=== PATIENT | female | born 1950 | race Caucasian/White ===

== ENCOUNTER 2025-02-11 06:02 | Day surgery (SDC) | payer MEDICARE, SELFPAY ==
[2025-02-11] VITALS (19 sets, daily range): BP systolic 88–154; BP diastolic 58–94; PULSE 61–86; RESP 14–29; TEMP 36.1–37.2; O2SAT 93–99; BMI 24.9
[2025-02-11] MEDS: LACTATED RINGERS 1000 ML 1,000 ML 100 ML IV ×3 (06:40→11:15)
[2025-02-11] MEDS: SODIUM CHLORIDE 0.9 % (FLUSH) 10 ML SYRINGE IVF (06:45)
[2025-02-11] MEDS: ACETAMINOPHEN 500 MG TABLET 1000 MG PO (06:56)
[2025-02-11] MEDS: OXYCODONE (CR) 10 MG TAB.ER.12H PO (06:56)
--- NOTE | 2025-02-11 07:10 | SUR.PREOP ---
TIME?OUT:?0710 PT/RN/MDA?VERIFICATION?OF?SURGICAL?SITE,?PROCEDURE,?AND?CONSENT OBTAINED?PRIOR?TO?INVASIVE?PROCEDURE.
[2025-02-11] MEDS: MIDAZOLAM HCL 1 MG/ML inj IVP (07:11)
--- NOTE | 2025-02-11 07:23 | W.PM.H&PU ---
History & Physical Update History & Physical Update H&P Reviewed and patient assessed: No changes noted
--- NOTE | 2025-02-11 07:51 | CRLHL7_ITS ---
For Patients: As a result of the Cures Act, medical imaging exams and procedure reports are released immediately into your electronic medical record. You may view this report before your referring provider. If you have questions, please contact your health care provider. Indication: Hip replacement surgery Technique: AP hip fluoroscopic image. Fluoroscopy time 43.5 seconds. Findings/Impression: Hardware from a right total hip arthroplasty is in satisfactory position. Dictated by Ayan Michael MD @ 02/11/2025 9:56:46 AM (Electronically Signed)
[2025-02-11] MEDS: TRANEXAMIC ACID 100 MG/ML INJ 1000 MG IV (07:59)
--- NOTE | 2025-02-11 09:03 | PM.ORPRC ---
Procedure Note Date of procedure: 02/11/25 Procedure: PREOPERATIVE DIAGNOSIS: 1. Right hip osteoarthritis, severe, primary POSTOPERATIVE DIAGNOSIS: 1. Right hip osteoarthritis, severe, primary PROCEDURE: 1. Right total hip arthroplasty-anterior approach 2. Intraoperative fluoroscopy interpreted by Murtaza Dejesus M.D. for intraoperative evaluation of arthroplasty implant component positioning and leg length/offset evaluation. Fluoroscopy time was 43.5 seconds. SURGEON: Murtaza Dejesus MD. CIVIL LAWYER: Lam Portillo PA-C; ARNOLDO Lui - Of note, a skilled recovery assistant was critical for this case to aid in patient positioning, tissue retraction, limb manipulation/positioning, and closure. ANESTHESIA: Spinal anesthetic EBL: 300 ml IMPLANTS: DePuy J&J uncemented total hip Kimball cup size 52, hole eliminator, +0 neutral liner Actis stem, high offset, size 8 +8.5 mm ceramic 36 mm head COMPLICATIONS: None evident INDICATIONS: The patient is a pleasant 74-year-old female who has experienced severe right hip pain and difficulty bearing weight. Workup included x-rays which revealed severe osteoarthrosis in the hip. Given the deformity, the dysfunction, and the pain, as well as the failure of nonoperative management, recommendation was made for surgery. FINDINGS: Full-thickness chondral loss diffusely throughout the femoral head and acetabulum. Large osteophytes on the femoral head/neck junction and perimeter of the acetabulum. Large effusion upon entering the joint. In general, the soft tissues were very loose/lax. DESCRIPTION OF PROCEDURE: Following a thorough discussion of risks, benefits, and alternatives consent was obtained and the right hip was marked. The patient was brought to the operating room and placed supine on the operating table. Induction of anesthesia was undertaken. 1 g IV Ancef and 1 g tranexamic acid was administered within 1 hr of incision preoperatively. Proper time-out was performed identifying proper patient, site, procedure. The operative extremity was prepped and draped in the appropriate sterile fashion using ChloraPrep after the patient was positioned on the [place] table with head in neutral alignment and all bony prominences well padded. C-arm fluoroscopic imaging was utilized to confirm proper pelvis rotation and position, and to get true AP films of both the contralateral left, and the affected right hip. This is for comparison. A longitudinal incision was made starting approximately 1 cm distal to the ASIS, and 2-3 cm lateral. The incision was extended distally aiming toward the fibular head. Sharp incision through skin and bovie cautery through the subcutaneous tissue allowed identification of the TFL fascia. This was sharply divided, and the fascia bluntly released from the muscle fibers as we dissected medial. Upon coming to the medial border, we were able to retract the TFL laterally, and penetrated the deeper fascia and identify the crossing circumflex vessels. These were ligated/cauterized. The rectus was elevated from the capsule, and retractors placed laterally and medially along the femoral neck to help with visualization of the capsule. We then performed an inverted T capsulotomy. The capsule was tagged for later repair. Retractors were placed inside the capsule. The femoral neck was visualized after releasing medially down to the lesser trochanter, along the saddle laterally, and up onto the acetabulum. The femoral neck cut was made in line with our preoperative templating. The head was removed in a single piece, and sized. We turned our attention to acetabular preparation. Initially, the labrum was resected from around the perimeter, the pulvinar was excised, allowing us to visualize the false wall. We started the reaming with a 43 mm reamer. This was medialized down to the true wall. We then enlarged our reamers sequentially up to one size less than the selected cup size. We trialed at the same size and found it to have an excellent fit. The selected cup was then opened, inserted, and impacted in line with the goal of 40? of abduction, and 20-25? of anteversion. This was confirmed on C-arm fluoroscopic imaging to be in the appropriate/goal position. Once the cup was placed we placed a hole eliminator and a liner consistent with preop planning. Attention was turned to the femoral preparation. The limb was extended, externally rotated, and adducted. The posteromedial capsule was released, as retractors were placed allowing excellent access to the proximal femur. Initially a dye box operator was followed by canal finder followed by various broaches. We broached sequentially up to the size noted above, found it to have excellent rotational control, and trialing various heads and necks, revealed that appropriate neck offset, and the above noted head size provided the greatest stability, and anabaptist of length, and offset. C-arm fluoroscopic imaging confirmed position of the stem, as well as leg lengths, which were compared with the pre procedure all fluoroscopic images. Trial implants were removed, the real femoral stem inserted, as was the appropriate head. After reducing, the leg was placed through range of motion and stability was confirmed anterior, posterior, and lateral. A 3 min Betadine soak was then performed, and thorough irrigation with normal saline followed. Closure of the capsule was performed with #1 PDS. Bleeding was confirmed to be controlled at this stage, and the TFL fascia was closed with #0 strata fix. Subcutaneous, and subcuticular closure was performed with 2-0 Stratafix and 4-0 Stratafix, respectively. Dressings were applied, and the patient was awoken from anesthesia and transferred the PACU in stable condition. A skilled recovery assistant was critical for this case to aid in patient positioning, tissue retraction, acetabular and proximal femoral exposure, limb manipulation/positioning, dislocation/relocation, patient safety, and closure. PLAN: 1. Weight bear as tolerated operative extremity. 2. 23 hr perioperative antibiotics. 3. Ice. 4. PT/OT consults for ambulation assistance/mobility education. 5. Social work consult for discharge planning. 6. DVT prophylaxis with at SCDs and Xarelto x5 days followed by aspirin for a total of 1 month.
--- NOTE | 2025-02-11 09:36 | P.NB_ITS ---
Nerve Block Nerve Block Time Seen by Provider: 07:10 Date Seen: 02/11/25 Type of block requested by surgeon for post-operative analgesia: SUZI/LFCN Side: right Time out performed: Yes Verification of patient name: Yes Verification of date of : Yes Site marking: site marked Name of person performing procedure: Elmer Continuous monitoring Was continuous monitoring of O2 sat, B/P, measurement superintendent, recorded every 15 minutes?: Yes Procedure Checklist: sterile prep, needles and gloves Ultrasound guided. Images saved: Yes Medications given in 5ml increments after negative aspiration: Ropivicaine %: 0.5 mL: 30 Needle gauge: 20 Precedex (mcg): 25 Patient tolerated procedure well: Yes Additional comments: Needle noted below psoas tendon needle noted adjacent to LFCN Block Charges Block Charge (with Pro Fee): Other Periph Nerve Block Use of Ultrasound Machine for Block: Yes- US Guidance/pain block
--- NOTE | 2025-02-11 09:37 | P.ANES_ITS ---
Anesthesia Charges Start Date/Time Anesthesia Start Date: 02/11/25 Anesthesia Start Time: 07:29 Stop Date/Time Anesthesia Stop Date: 02/11/25 Anesthesia Stop Time: 10:21 Summary Extremes of Age - Over 70 or under 1: MDA Coding CPT Codes CPT Codes: ANESTH HIP ARTHROPLASTY - 43961 ([id number]) P2 - PATIENT W/MILD SYST DISEASE, QK - INFRASTRUCTURE TECHNICIAN 2-4 CNCRNT ANES PROC, QX - CONTACT CENTER CONSULTANT SVC W/ MD MED DIRECTION Additional Codes: Summary - Extremes of Age - Over 70 or under 1: MDA ([id number])
--- NOTE | 2025-02-11 09:37 | W.ANESCHARGE ---
Anesthesia Charges Start Date/Time Anesthesia Start Date: 02/11/25 Anesthesia Start Time: 07:29 Stop Date/Time Anesthesia Stop Date: 02/11/25 Anesthesia Stop Time: 10:21 Summary Extremes of Age - Over 70 or under 1: MDA Coding CPT Codes CPT Codes: ANESTH HIP ARTHROPLASTY - 11061 ([id number]) P2 - PATIENT W/MILD SYST DISEASE, QK - HYDRATION PLANT OPERATOR 2-4 CNCRNT ANES PROC, QX - CHOCOLATE PRODUCTION MACHINE OPERATOR SVC W/ MD MED DIRECTION Additional Codes: Summary - Extremes of Age - Over 70 or under 1: MDA ([id number])
--- NOTE | 2025-02-11 10:18 | CRLHL7_ITS ---
For Patients: As a result of the Cures Act, medical imaging exams and procedure reports are released immediately into your electronic medical record. You may view this report before your referring provider. If you have questions, please contact your health care provider. Indication: Post op Hip Technique: AP hip centered pelvis and lateral view right hip Findings/Impression: Hardware from a right total hip arthroplasty is in satisfactory position. Bone alignment is normal. No sign of acute fracture. Postop changes are within normal limits. Dictated by Ayan Michael MD @ 02/11/2025 12:53:36 PM (Electronically Signed)
--- NOTE | 2025-02-11 10:22 | P.ANES_ITS ---
Anesthesia Charges Start Date/Time Anesthesia Start Date: 02/11/25 Anesthesia Start Time: 07:29 Stop Date/Time Anesthesia Stop Date: 02/11/25 Anesthesia Stop Time: 10:21 Summary Extremes of Age - Over 70 or under 1: WINDOW UNIT AIR CONDITIONING MECHANIC Coding CPT Codes CPT Codes: ANESTH HIP ARTHROPLASTY - 01723 ([id number]) P2 - PATIENT W/MILD SYST DISEASE, QK - CHILD CARE COOK 2-4 CNCRNT ANES PROC, QX - WINDOW UNIT AIR CONDITIONING MECHANIC SVC W/ MD MED DIRECTION Additional Codes: Summary - Extremes of Age - Over 70 or under 1: WINDOW UNIT AIR CONDITIONING MECHANIC ([id number])
--- NOTE | 2025-02-11 10:22 | W.ANESCHARGE ---
Anesthesia Charges Start Date/Time Anesthesia Start Date: 02/11/25 Anesthesia Start Time: 07:29 Stop Date/Time Anesthesia Stop Date: 02/11/25 Anesthesia Stop Time: 10:21 Summary Extremes of Age - Over 70 or under 1: CORRESPONDENCE COORDINATOR Coding CPT Codes CPT Codes: ANESTH HIP ARTHROPLASTY - 66459 ([id number]) P2 - PATIENT W/MILD SYST DISEASE, QK - MINES SAFETY ENGINEER 2-4 CNCRNT ANES PROC, QX - CORRESPONDENCE COORDINATOR SVC W/ MD MED DIRECTION Additional Codes: Summary - Extremes of Age - Over 70 or under 1: CORRESPONDENCE COORDINATOR ([id number])
--- NOTE | 2025-02-11 10:51 | SUR.PHASEI ---
patient met discharge criteria per anesthesia
[2025-02-11] MEDS: ACETAMINOPHEN 500 MG TABLET PO (11:17)
[2025-02-11] MEDS: ONDANSETRON 2 MG/ML inj 4 MG IVP (12:25)
--- NOTE | 2025-02-11 12:27 | SUR.PHASEII ---
Pt c/o nausea after eating a few bites of yogurt. Pt given IV Zofran and aromatherapy patch on her gown. Will continue to monitor.
--- NOTE | 2025-02-11 14:26 | SUR.PHASEII ---
OT in room with pt at 2 PM to work on dressing. Pt remains mildly nauseated but tolerable. VSS.
== END 2025-02-11 16:08 | disposition home or self-care (01) ==
PROVIDERS: PCP Family Medicine; Visit Provider Orthopaedic Surgery Sports Medicine
PROC: (CPT 27130; principal; 2025-02-11 07:15)
DX: M16.11 Unilateral primary osteoarthritis, right hip (principal); G89.18 Other acute postprocedural pain
CPT/HCPCS: 27130; 01214; 36415; 64450; 73501; 76000; 76942; 86850; 86900; 86901; 97110; 97116; 97161; 97165; 97535; 99100; A9270; C1776; J0690; J1100; J2250; J2371; J2405; J2704; J2795; J3010; J7120